=== PATIENT | female | born 1995 | race Caucasian/White ===

== ENCOUNTER 2018-12-15 02:47 | Emergency (ER) | payer BC ==
[2018-12-15] MEDS ORDERED: Nitrofurantoin Monohydrate/Macrocrystalline 100 MG Cap PO ONE (02:48)
[2018-12-15 02:50] VITALS: BP 154/90
--- NOTE | 2018-12-15 03:29 | EDM.PDOC ---
ED HPI GENERAL MEDICAL PROBLEM - General Chief Complaint: Genitourinary Problem Stated Complaint: UTI Time Seen by Provider: 12/15/18 03:18 Source of Information: Reports: Patient History Limitations: Reports: No Limitations - History of Present Illness INITIAL COMMENTS - FREE TEXT/NARRATIVE: Holli is a 23 year old female who presents to the ED with c/o urinary symptoms. She reports starting yesterday afternoon she noticed urinary frequency and urgency. Starting tonight started having more dysuria and didn't think she could make it until morning. Has not tried anything. No flank pain, fevers, abdominal pain, N/V/D. No other complaints. Reports last UTI was a couple years ago. Onset Date: 12/13/18 Duration: Getting Worse Associated Symptoms: Denies: Fever/Chills, Loss of Appetite, Nausea/Vomiting Vaginal Pain Score (Numeric/FACES): 4 - Related Data Allergies Allergy/AdvReac Type Severity Reaction Status Date / Time No Known Allergies Allergy Verified 12/15/18 02:53 Home Meds: Home Meds Norgestimate-Ethinyl Estradiol [Sprintec] 1 tab PO DAILY 08/19/16 [History] Nitrofurantoin Macrocrystal [Macrodantin] 100 mg PO BID #12 capsule 12/15/18 [Rx ] Past Medical History - Past Health History Medical/Surgical History: Denies Medical/Surgical History - Past Surgical History HEENT Surgical History: Reports: Other (See Below) Other HEENT Surgeries/Procedures: WISDOM TEETH EXTRACTION Social & Family History - Family History Cardiac: Reports: Hypertension - Tobacco Use Smoking Status *Q: Never Smoker - Caffeine Use Caffeine Use: Reports: None - Recreational Drug Use Recreational Drug Use: No - Living Situation & Occupation Living situation: Reports: with Family ED ROS GENERAL - Review of Systems Review Of Systems: ROS reveals no pertinent complaints other than HPI. ED EXAM, RENAL/ - Physical Exam Exam: See Below Exam Limited By: No Limitations General Appearance: Alert, WD/WN, No Apparent Distress Respiratory/Chest: No Respiratory Distress, Lungs Clear, Normal Breath Sounds, No Accessory Muscle Use, Chest Non-Tender Cardiovascular: Normal Peripheral Pulses, Regular Rate, Rhythm, No Edema, No Gallop, No JVD, No Murmur, No Rub GI/Abdominal: Normal Bowel Sounds, Soft, Non-Tender, No Organomegaly, No Distention, No Abnormal Bruit, No Mass Back Exam: No: CVA Tenderness (L), CVA Tenderness (R) Course - Vital Signs Last Recorded V/S: Last Vital Signs Temp 97 F 12/15/18 02:48 Pulse 89 12/15/18 02:48 Resp 20 12/15/18 02:48 BP 154/90 H 12/15/18 02:48 Pulse Ox 100 12/15/18 02:48 - Orders/Labs/Meds Labs: Laboratory Tests 12/15/18 Range/Units 02:51 Urine Color Yellow (YELLOW) Urine Appearance Slightly cloudy (CLEAR) Urine pH 5.0 (4.5-8.0) Ur Specific [place] <= 1.005 (1.003-1.020) Urine Protein Negative (NEGATIVE) mg/dL Urine Glucose (UA) Negative (NEGATIVE) mg/dL Urine Ketones Negative (NEGATIVE) mg/dL Urine Occult Blood Large H (NEGATIVE) Urine Nitrite Negative (NEGATIVE) Urine Bilirubin Negative (NEGATIVE) Urine Urobilinogen 0.2 (0.2-1.0) EU/dL Ur Leukocyte Esterase Large H (NEGATIVE) Urine RBC 5-10 H (0-5) /HPF Urine WBC 30-40 H (0-5) /HPF Urine Bacteria Few H (NOT SEEN) /HPF Urinalysis Comment Meds: Medications Discontinued Medications Generic Name Dose Route Start Last Admin Trade Name Freq PRN Reason Stop Dose Admin Nitrofurantoin Macrocrystals 1 packet 12/15/18 03:24 12/15/18 03:30 Take Home: Nitrofur Pope/Ma 100 Mg, 2 Pack PO 12/15/18 03:25 1 packet ONETIME ONE Administration Nitrofurantoin Macrocrystals 200 mg 12/15/18 02:48 Macrobid PO 12/15/18 02:49 .STK-MED ONE Departure - Departure Time of Disposition: 03:26 Disposition: Home, Self-Care 01 Condition: Good Clinical Impression: UTI, Urinary tract infectious disease - Discharge Information *PRESCRIPTION DRUG MONITORING PROGRAM REVIEWED*: Not Applicable *COPY OF PRESCRIPTION DRUG MONITORING REPORT IN PATIENT MEGAN: Not Applicable Prescriptions: Nitrofurantoin Macrocrystal [Macrodantin] 100 mg PO BID #12 capsule Instructions: Urinary Tract Infection, Adult, [id number] Referrals: Pako Orantes MD [Primary Care Provider] - Forms: ED Department Discharge Additional Instructions: 1) Push fluids 2) Tylenol or ibuprofen as needed 3) Macrobid twice daily x 7 days 4) AZO (Pyridium) as needed for dysuria. Cranberry juice can also help sometimes. 5) Follow up if symptoms worsen or do not improve
[2018-12-15] MEDS: Take Home: Nitrofurantoin Monohydrate/Macrocrystalline 100 MG, 2 Cap Pack PO ONE (03:30)
== END 2018-12-15 03:35 | disposition home or self-care (01) ==
LOC: CC.ED 02:47
DX: N39.0 Urinary tract infection, site not specified (principal)
CPT/HCPCS: 81001; 87086; 87088; 87186; 99283; A9270-GY